=== PATIENT | male | born 1985 | race Caucasian/White ===

== ENCOUNTER 2017-03-26 04:28 | Emergency (ER) | payer OTHER ==
[~2017-03-26] VITALS: Ht 172.7 cm; Wt 88.5 kg
[2017-03-26] MEDS ORDERED: KETO10TA2 PO (06:14)
[2017-03-26] MEDS ORDERED: NORFLEX100MG PO (06:14)
== END 2017-03-26 06:23 | disposition home or self-care (01) ==
LOC: ER 04:28
DX: M62.830 Muscle spasm of back (principal)